=== PATIENT | female | born 1970 | race Caucasian/White ===

== ENCOUNTER 2022-11-17 01:46 | Emergency (ER) | payer OTHER ==
[~2022-11-17] VITALS: Ht 157.5 cm; Wt 75.0 kg
[2022-11-17 02:42] VITALS: BP 129/83
[2022-11-17] MEDS ORDERED: KETOROLAC TROMETHAMINE 30 MG/ML VIAL IVP ONE (02:45)
== END 2022-11-17 04:20 | disposition home or self-care (01) ==
LOC: EMS 01:49
DX: S13.4XXA Sprain of ligaments of cervical spine, initial encounter (principal); V89.2XXA Person injured in unspecified motor-vehicle accident, traffic, initial encounter; Y93.89 Activity, other specified; Y92.89 Other specified places as the place of occurrence of the external cause; Y99.8 Other external cause status
CPT/HCPCS: 99285; 96374; 72125; 73562; J1885

== ENCOUNTER 2023-04-06 09:52 | Emergency (ER) | payer OTHER ==
[~2023-04-06] VITALS: Ht 152.4 cm; Wt 75.0 kg
[2023-04-06 11:30] VITALS: BP 122/42; PULSE 70; RESP 20; TEMP 98
[2023-04-06 12:18] LABS: COVID AG,FIA SOURCE NASAL SWAB
[2023-04-06 12:37] LABS: INFLUENZA TYPE A NEGATIVE FOR TYPE A (NEGATIVE); INFLUENZA TYPE B NEGATIVE FOR TYPE B (NEGATIVE)
== END 2023-04-06 13:30 | disposition home or self-care (01) ==
LOC: EMS 09:52
DX: U07.1 COVID-19 (principal)
CPT/HCPCS: 71045; 87804; 99284